=== PATIENT | female | born 1930 | race Hispanic/Latino ===

== ENCOUNTER 2018-01-26 14:09 | Inpatient (IN) | payer BC, MEDICARE ==
[2018-01-26 14:09] VITALS: BMI 21.9
--- NOTE | 2018-01-26 14:58 | C.PDOC ---
History Of Present Illness <Cleopatra Palacios - Last Filed: 01/26/18 18:43> <Ximena Martin - Last Filed: 01/26/18 19:29> 87 year old female, whose PMHx includes left femur ORIF, presents to the ED for evaluation after she tripped and fell in her home kitchen around 4 days ago. Patient states she fell onto her left hip. She has been experiencing pain with weight bearing and has limited full range of motion when walking, but is able to sit and lay down without pain. She denies head injury, LOC, extremity numbness/weakness. (Cleopatra Palacios) - HPI History Per: Patient History/Exam Limitations: no limitations Location Of Injury: Left: Hip Additional History Per: Patient <Cleopatra Palacios - Last Filed: 01/26/18 18:43> <Ximena Martin Nadeem - Last Filed: 01/26/18 19:29> - HPI Time Seen by Provider: 01/26/18 14:18 Chief Complaint (Nursing): Lower Extremity Problem/Injury Past Medical History Reviewed: Historical Data, Nursing Documentation, Vital Signs - Medical History PMH: Anemia, Anxiety, Colonic Polyps, Diabetes, Fractures (left hip fractured has a metal) Denies: Chronic Kidney Disease Surgical History: No Surg Hx Family History: States: Unknown Family Hx - Social History Hx Tobacco Use: No Hx Alcohol Use: No Hx Substance Use: No - Immunization History Hx Tetanus Toxoid Vaccination: No Hx Influenza Vaccination: Yes Hx Pneumococcal Vaccination: No <Cleopatra Palacios - Last Filed: 01/26/18 18:43> Vital Signs: Last Vital Signs Temp 98.3 F 01/26/18 16:55 Pulse 64 01/26/18 16:55 Resp 18 01/26/18 16:55 BP 133/71 01/26/18 16:55 Pulse Ox 94 L 01/26/18 18:44 - [facility] Procedures ENDOSC POLYPECTOMY OF LG INTEST (05/21/15) Review Of Systems Musculoskeletal: Positive for: Other (left hip pain ) Neurological: Negative for: Other (head injury, LOC ) <Cleopatra Palacios - Last Filed: 01/26/18 18:43> Physical Exam - Physical Exam Appears: Non-toxic, No Acute Distress Skin: Normal Color, Warm, Dry Head: Atraumatic, Normacephalic Eye(s): bilateral: Normal Inspection Oral Mucosa: Moist Neck: Supple Chest: Symmetrical, No Deformity, No Tenderness Cardiovascular: Rhythm Regular, No Murmur Respiratory: Normal Breath Sounds, No Rales, No Rhonchi, No Wheezing Extremity: No Normal ROM (limited, left hip ), Tenderness (diffuse, to left hip ), Capillary Refill (less than 2 seconds ), No Other (shortnening, malrotation, gross deformity ) Neurological/Psych: Oriented x3, Normal Speech, Normal Cognition, Normal Sensation <Cleopatra Palacios - Last Filed: 01/26/18 18:43> ED Course And Treatment O2 Sat by Pulse Oximetry: 94 - CT Scan/US L HIP Other Rad Studies (CT/US): Radiology Report Reviewed (Suspect subtle nondisplaced fracture of the left acetabular roof. No other acute abnormality.) Progress Note: CXR, CT Upper Extremity, Left Femur XR, left HIP, Pelvic XR ordered and reviewed. Patient was offered pain medication and states she does not want any at this time. <Cleopatra Palacios - Last Filed: 01/26/18 18:43> - Laboratory Results Result Diagrams: 01/26/18 19:07 01/26/18 19:07 ECG: Interpreted By Me ECG Rhythm: Sinus Rhythm, 1st Degree HB ECG Interpretation: No Acute Changes Interpretation Of ECG: old anteroseptal MO!st deg AV block.Otherwise neg <Ximena Martin - Last Filed: 01/26/18 19:29> Progress - Data Reviewed Data Reviewed: Diagnostic imaging <Cleopatra Palacios - Last Filed: 01/26/18 18:43> <Ximena Martin - Last Filed: 01/26/18 19:29> - Re-Evaluation Re-evaluation Note: 01/26/18 16:37 APPEARS COMFORTABLE NAD. WILL CT R/O FX 01/26/18 18:43 D/W [facility] MED MATCHER OPERATOR AWARE OF ER FINDINGS WILL ADMIT. CONSULT ORTHO MATCHER OPERATOR ( Cleopatra Palacios) Disposition Counseled Patient/Family Regarding: Studies Performed, Diagnosis - Disposition Disposition Time: 18:43 - POA Present On Arrival: Falls Or Trauma <Cleopatra Palacios - Last Filed: 01/26/18 18:43> <Ximena Martin - Last Filed: 01/26/18 19:29> - Disposition Disposition: HOSPITALIZED Condition: STABLE Forms: [facility] ([place]) - Clinical Impression Clinical Impression: Hip fracture Critical Care Time - Scribe Statement The provider has reviewed the documentation as recorded by the Scribe (Latonya Ely) <Cleopatra Palacios - Last Filed: 01/26/18 18:43> <Ximena Martin - Last Filed: 01/26/18 19:29> - Scribe Statement Provider Attestation: All medical record entries made by the Scribe were at my direction and personally dictated by me. I have reviewed the chart and agree that the record accurately reflects my personal performance of the history, physical exam, medical decision making, and the department course for this patient. I have also personally directed, reviewed, and agree with the discharge instructions and disposition. (Cleopatra Palacios) Decision To Admit - Pt Status Changed To: Hospital Disposition Of: Inpatient - Admit Certification Admit to Inpatient:: After my assessment, the patient will require hospitalization for at least two midnights. This is because of the severity of symptoms shown, intensity of services needed, and/or the medical risk in this patient being treated as an outpatient. - InPatient: Physician Admission Certification: I certify that this patient requires 2 or more midnights of care for the following reason:: SEE NOTE - . Bed Request Type: Regular Admitting Physician: Carlyle Law <Cleopatra Palacios - Last Filed: 01/26/18 18:43> <Ximena Martin - Last Filed: 01/26/18 19:29> - . Patient Diagnosis: Hip fracture
--- NOTE | 2018-01-26 16:29 | RAD ---
PROCEDURE: CHEST RADIOGRAPH, 1 VIEW HISTORY: Trauma COMPARISON: None available. FINDINGS: LUNGS: The lungs are hyperinflated and there is peribronchial thickening with chronic changes in both lungs. There is no airspace disease. PLEURA: There are no pleural effusions. There is a linear lucency along the left lateral chest wall however this appears artifactual related to in a soft tissue fold. CARDIOVASCULAR: Normal. OSSEOUS STRUCTURES: There is diffuse bone demineralization. There is an old fracture deformity in the left posterior 5th rib. VISUALIZED UPPER ABDOMEN: Normal. OTHER FINDINGS: None. IMPRESSION: Linear lucency along the left lateral chest wall appears artifactual related to a soft tissue fold however repeat PA a radiograph is recommended to exclude pneumothorax in this patient with history of trauma.
--- NOTE | 2018-01-26 16:37 | RAD ---
PROCEDURE: Left Femur Radiographs. HISTORY: TRAUMA COMPARISON: None. TECHNIQUE: AP and Lateral Radiographs of the left femur. FINDINGS: FEMUR: ORIF proximal left femur. No acute fracture. Hardware intact. SOFT TISSUES: Normal. OTHER FINDINGS: None. IMPRESSION: No acute fracture.
--- NOTE | 2018-01-26 16:38 | RAD ---
PROCEDURE: Radiographs of the pelvis. HISTORY: TRAUMA COMPARISON: None. FINDINGS: BONES: Pelvic Bones: Unremarkable. Hips: No acute fracture. Status post ORIF proximal left femur. JOINTS: Sacroiliac Joints: Osteoarthritis of right hip. Pubic Symphysis: Unremarkable. OTHER FINDINGS: None. IMPRESSION: No acute fracture. Osteoarthritis of right hip.
--- NOTE | 2018-01-26 18:38 | CT ---
PROCEDURE: CT left hip HISTORY: TRAUMA RO FX COMPARISON: Not available TECHNIQUE: 2.5 mm contiguous axial sections were acquired through the left hip. Sagittal and coronal images were reformatted from the axial scan. Total exam DLP: 324.21 mGy-cm This CT exam was performed using 1 or more of the following dose reduction techniques: Automated exposure control, adjustment of the mA and/or kV according to patient size, and/or use of iterative reconstruction technique. FINDINGS: There is suspected subtle nondisplaced fracture of the left acetabular roof best demonstrated on series 5, images 32 through 35. There is no other acute fracture identified. There is orthopedic hardware from prior ORIF of intertrochanteric fracture. The hardware is intact. There is osteoarthritis of the left hip with a subchondral cyst at the lateral margin of the acetabular roof. Incidentally noted calcified uterine fibroid. IMPRESSION: Suspect subtle nondisplaced fracture of the left acetabular roof. No other acute abnormality.
[2018-01-26] MEDS ORDERED: Sodium Chloride 0.9% 1,000 ML IV ONE (18:44)
[2018-01-26 19:13] LABS: BASO % 0.4 % (0.0-2.0); EOS # 0.1 K/uL (0.0-0.7); EOS % 2.7 % (0.0-4.0); HEMOGLOBIN 10.8 g/dL (11.0-16.0); LYMPH # 0.7 K/uL (1.0-4.3); LYMPH % 13.3 % (20.0-40.0); MEAN CELL VOLUME 80.8 fL (81.0-99.0); MEAN CORPUSCULAR HEMOGLOBIN 26.3 pg (27.0-31.0); MEAN CORPUSCULAR HGB CONC 32.5 g/dL (33.0-37.0); MEAN PLATELET VOLUME 9.5 fL (7.2-11.7); MONO # 0.9 K/uL (0.0-0.8); MONO % 17.8 % (0.0-10.0); NEUT # 3.5 K/uL (1.8-7.0); NEUT % 65.8 % (50.0-75.0); RBC 4.11 Mil/uL (3.80-5.20); RED CELL DISTRIBUTION WIDTH 14.8 % (11.5-14.5); WHITE BLOOD COUNT 5.3 K/uL (4.8-10.8)
[2018-01-26 19:22] LABS: PROTHROMBIN TIME 11.3 SECONDS (9.7-12.2)
[2018-01-26 19:23] LABS: ALB/GLOB RATIO 1.2 (1.0-2.1); ALBUMIN 3.7 g/dL (3.5-5.0); CALCIUM 8.4 mg/dl (8.6-10.4)
[2018-01-26 20:37] LABS: SQUAMOUS EPITHIAL 1 /hpf (0-5); URINE BACTERIA OCC (<OCC); URINE BILIRUBIN NEGATIVE (NEGATIVE); URINE BLOOD 3+ (NEGATIVE); URINE CLARITY Hazy (Clear); URINE COLOR Red (YELLOW); URINE GLUCOSE (UA) NORMAL (Normal); URINE HYALINE CAST 0-2 /lpf (0-2); URINE LEUKOCYTE ESTERASE 1+ Leu/uL (Negative); URINE PROTEIN 1+ mg/dL (NEGATIVE); URINE UROBILINOGEN NORMAL mg/dL (0.2-1.0)
[2018-01-26] MEDS ORDERED: Sodium Chloride 0.9% 1,000 ML ONE (21:34)
[2018-01-27] MEDS ORDERED: Enoxaparin 40 mg Syringe SC SCH (10:00)
[2018-01-27] MEDS: Multiple Vitamins Tab PO SCH (10:27)
[2018-01-27] MEDS: Enoxaparin 30 mg Syringe SC SCH (10:32)
--- NOTE | 2018-01-27 13:13 | CP.PCM.CON ---
History of Present Illness - History of Present Illness History of Present Illness: ID; 87yo female CC: painand restricted L hip ROM HPI: pt susatined a fall on L hip, and presetns with pain and restricted L hip ROM pt admitted after ER eval PT s/p prior HELLEN L hipfx, now tih fx acetabuleum(nondipslaced) Past Patient History - Infectious Disease Hx of Infectious Diseases: None - Past Medical History & Family History Past Medical History?: Yes - Past Social History Smoking Status: Never Smoked - CARDIAC Hx Cardiac Disorders: No - PULMONARY Hx Respiratory Disorders: No - NEUROLOGICAL Hx Neurological Disorder: No - HEENT Hx HEENT Problems: Yes Hx Cataracts: Yes (REMOVED BOTH EYES) Other/Comment: 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 VISION SLIGHTLY IMPAIRED NOW DUE TO SCAR TISSUE. WILL NEED SURGERY TO IMPROVE VISION. - RENAL Hx Chronic Kidney Disease: No - ENDOCRINE/METABOLIC Hx Endocrine Disorders: Yes Hx Diabetes Mellitus Type 2: Yes (DOES NOT TAKE MED. FOR) Other/Comment: DENIES DIABETES TODAY 01/26/18 - HEMATOLOGICAL/ONCOLOGICAL Hx Anemia: Yes - INTEGUMENTARY Hx Dermatological Problems: No - MUSCULOSKELETAL/RHEUMATOLOGICAL Hx Falls: Yes Hx Fractures: Yes (left hip fractured has a metal) - GASTROINTESTINAL Hx Gastrointestinal Disorders: No - GENITOURINARY/GYNECOLOGICAL Hx Genitourinary Disorders: Yes Other/Comment: 'OVERACTIVE BLADDER' - PSYCHIATRIC Hx Anxiety: Yes Hx Substance Use: No - SURGICAL HISTORY Hx Orthopedic Surgery: Yes (LT FEMUR SX) - ANESTHESIA Hx Anesthesia: Yes Hx Anesthesia Reactions: No Hx Malignant Hyperthermia: No Meds Allergies/Adverse Reactions: Allergies Allergy/AdvReac Type Severity Reaction Status Date / Time Penicillins Allergy Mild RASH Verified 01/26/18 14:34 turpentine oil Allergy Mild RASH Verified 01/26/18 14:34 - Medications Medications: Current Medications Enoxaparin Sodium (Lovenox) 30 mg SC DAILY [facility] Last Admin: 01/27/18 10:32 Dose: 30 mg Multivitamins (Hexavitamin) 1 tab PO DAILY [facility] Last Admin: 01/27/18 10:27 Dose: 1 tab Pneumococcal Polyvalent Vaccine (Pneumovax 23 Vaccine) 0.5 ml IM .ONCE ONE Stop: 01/29/18 10:01 Physical Exam - Additional Findings Additional findings: Systemic exam- groslly wnl pysiologically young appearing *87 yo ferm[place]- presents with pain and restricted L hip ROM Musculoskeltal stanc/gait- defrred ROM L hip restricted + heel percussion test N/V intact Results - Vital Signs Recent Vital Signs: Last Vital Signs Temp 97.4 F L 01/27/18 08:39 Pulse 88 01/27/18 08:39 Resp 20 01/27/18 08:39 BP 159/67 H 01/27/18 08:39 Pulse Ox 96 01/27/18 08:39 - Labs Result Diagrams: 01/26/18 19:07 01/26/18 19:07 Labs: Laboratory Results - last 24 hr 01/26/18 01/26/18 01/26/18 19:07 19:07 19:07 WBC 5.3 RBC 4.11 Hgb 10.8 L Hct 33.2 L MCV 80.8 L D MCH 26.3 L MCHC 32.5 L RDW 14.8 H Plt Count 117 L D MPV 9.5 Neut % (Auto) 65.8 Lymph % (Auto) 13.3 L Boyle % (Auto) 17.8 H Eos % (Auto) 2.7 Baso % (Auto) 0.4 Neut # (Auto) 3.5 Lymph # (Auto) 0.7 L Boyle # (Auto) 0.9 H Eos # (Auto) 0.1 Baso # (Auto) 0.0 PT 11.3 INR 1.0 APTT 31 Sodium 142 Potassium 3.9 Chloride 102 Carbon Dioxide 24 Anion Gap 19 BUN 34 H Creatinine 1.6 H Est GFR ( Amer) 37 Est GFR (Non-Af Amer) 30 Random Glucose 159 H Calcium 8.4 L Total Bilirubin 0.4 AST 12 L ALT 18 Alkaline Phosphatase 49 Total Protein 6.6 Albumin 3.7 Globulin 2.9 Albumin/Globulin Ratio 1.2 Urine Color Urine Clarity Urine pH Ur Specific [place] Urine Protein Urine Glucose (UA) Urine Ketones Urine Blood Urine Nitrate Urine Bilirubin Urine Urobilinogen Ur Leukocyte Esterase Urine WBC (Auto) Urine RBC (Auto) Ur Squamous Epith Cells Ur Transition Epith Cell Urine Bacteria Hyaline Casts Blood Type Antibody Screen 01/26/18 01/26/18 19:07 20:25 WBC RBC Hgb Hct MCV MCH MCHC RDW Plt Count MPV Neut % (Auto) Lymph % (Auto) Boyle % (Auto) Eos % (Auto) Baso % (Auto) Neut # (Auto) Lymph # (Auto) Boyle # (Auto) Eos # (Auto) Baso # (Auto) PT INR APTT Sodium Potassium Chloride Carbon Dioxide Anion Gap BUN Creatinine Est GFR ( Amer) Est GFR (Non-Af Amer) Random Glucose Calcium Total Bilirubin AST ALT Alkaline Phosphatase Total Protein Albumin Globulin Albumin/Globulin Ratio Urine Color Red Urine Clarity Hazy Urine pH 5.0 Ur Specific [place] 1.010 Urine Protein 1+ H Urine Glucose (UA) Normal Urine Ketones Negative Urine Blood 3+ H Urine Nitrate Negative Urine Bilirubin Negative Urine Urobilinogen Normal Ur Leukocyte Esterase 1+ H Urine WBC (Auto) 17 H Urine RBC (Auto) 217 H Ur Squamous Epith Cells 1 Ur Transition Epith Cell < 1 Urine Bacteria Occ H Hyaline Casts 0-2 Blood Type A NEGATIVE Antibody Screen Negative - Impressions Impression: Imaging CT - scan reveals prior ORIF L i ntertrochanteric hip fx Primary O/A L hip/CT reveals non displaced acetabular fx Assessment & Plan - Assessment and Plan (Free Text) Assessment: A- non displaced acetabular fx L P Toe touch weight bearing with walker no op intervention necessary at this point, thoughbt the pt does have a SEVERELY OSTEOARTHRITIC L HIP
[2018-01-28] MEDS: Multiple Vitamins Tab PO SCH (09:27)
[2018-01-28] MEDS: Enoxaparin 30 mg Syringe SC SCH (09:27)
--- NOTE | 2018-01-29 08:07 | CP.PCM.PN ---
Subjective - Date & Time of Evaluation Date of Evaluation: 01/29/18 Time of Evaluation: 08:05 - Subjective Subjective: Patient states pain is controlled unless she moves around, and then she has pain in her left hip. She has stairs to get into building, and then lives on second floor. Review of Systems - Review of Systems All systems: reviewed and no additional remarkable complaints except Review of Systems: no fever/chills - Cardiovascular Cardiovascular: UNREMARKABLE - Respiratory Respiratory: UNREMARKABLE - Gastrointestinal Gastrointestinal: UNREMARKABLE - Musculoskeletal Musculoskeletal: As Par HPI - Integumentary Integumentary: UNREMARKABLE - Neurological Neurological: UNREMARKABLE - Hematologic/Lymphatic Hematologic: UNREMARKABLE Objective - Vital Signs/Intake and Output Vital Signs (last 24 hours): Temp Pulse Resp BP Pulse Ox 97.6 F 58 L 20 125/68 96 01/28/18 23:25 01/28/18 23:25 01/28/18 23:25 01/28/18 23:25 01/28/18 23:25 Intake and Output: 01/29/18 01/29/18 06:59 18:59 Intake Total 120 Balance 120 - Medications Medications: Current Medications Docusate Sodium (Colace) 100 mg PO BID [facility] Last Admin: 01/28/18 17:57 Dose: 100 mg Enoxaparin Sodium (Lovenox) 30 mg SC DAILY [facility] Last Admin: 01/28/18 09:27 Dose: 30 mg Multivitamins (Hexavitamin) 1 tab PO DAILY [facility] Last Admin: 01/28/18 09:27 Dose: 1 tab Pneumococcal Polyvalent Vaccine (Pneumovax 23 Vaccine) 0.5 ml IM .ONCE ONE Stop: 01/29/18 10:01 - Labs Labs: 01/26/18 19:07 01/26/18 19:07 PT 11.3 SECONDS (9.7-12.2) 01/26/18 19:07 INR 1.0 01/26/18 19:07 APTT 31 SECONDS (21-34) 01/26/18 19:07 - Constitutional Appears: Well, No Acute Distress - Head Exam Head Exam: ATRAUMATIC - Neck Exam Neck Exam: Full ROM, Normal Inspection - Respiratory Exam Respiratory Exam: NORMAL BREATHING PATTERN - Cardiovascular Exam Additional comments: +DP/PT pulses - Extremities Exam Additional comments: sensation intact BLE Calves soft NT neg homans - Neurological Exam Neurological Exam: Alert, Awake, Oriented x3 Neuro motor strength exam: Left Lower Extremity: 5, Right Lower Extremity: 5 - Psychiatric Exam Psychiatric exam: Normal Affect, Normal Mood - Skin Skin Exam: Dry, Intact, Normal Color, Warm Assessment and Plan (1) Closed left acetabular fracture Assessment & Plan: non operative treatment of fracture TTWB LLE, advised patient WB could displace fracture PT/OT VTE proph d/c planning SCD no orthopedic intervention indicated at this time d/w Dr. Rendon, agrees with above Status: Acute (2) Osteoarthritis of right hip Status: Chronic
[2018-01-29] MEDS ORDERED: Pneumococcal 23-Valent Vaccine IM ONE (10:00)
[2018-01-29] MEDS: Multiple Vitamins Tab PO SCH (10:30)
[2018-01-29] MEDS: Enoxaparin 30 mg Syringe SC SCH (10:30)
--- NOTE | 2018-01-29 11:47 | CP.PCM.PN ---
Subjective - Date & Time of Evaluation Date of Evaluation: 01/29/18 Time of Evaluation: 10:25 - Subjective Subjective: PGY-[address] Law Patient see and examined at bedside with family member present. No acute events reported overnight. Patient reports with mild pain at the left hip. Patient denies fever, chills, headache, shortness of breath, chest pain, nausea, vomiting, or diarrhea. Objective - Vital Signs/Intake and Output Vital Signs (last 24 hours): Temp Pulse Resp BP Pulse Ox 97.5 F L 58 L 20 149/83 95 01/29/18 08:00 01/29/18 08:00 01/29/18 08:00 01/29/18 08:00 01/29/18 08:00 Intake and Output: 01/29/18 01/29/18 06:59 18:59 Intake Total 120 Balance 120 - Medications Medications: Current Medications Docusate Sodium (Colace) 100 mg PO BID [facility] Last Admin: 01/29/18 10:30 Dose: 100 mg Enoxaparin Sodium (Lovenox) 30 mg SC DAILY [facility] Last Admin: 01/29/18 10:30 Dose: 30 mg Multivitamins (Hexavitamin) 1 tab PO DAILY [facility] Last Admin: 01/29/18 10:30 Dose: 1 tab - Labs Labs: 01/26/18 19:07 01/26/18 19:07 PT 11.3 SECONDS (9.7-12.2) 01/26/18 19:07 INR 1.0 01/26/18 19:07 APTT 31 SECONDS (21-34) 01/26/18 19:07 - Constitutional Appears: Non-toxic, No Acute Distress, Younger Than Stated Age - Head Exam Head Exam: ATRAUMATIC, NORMOCEPHALIC - Eye Exam Eye Exam: EOMI, Normal appearance - ENT Exam ENT Exam: Mucous Membranes Moist - Neck Exam Neck Exam: Normal Inspection - Respiratory Exam Respiratory Exam: Clear to Ausculation Bilateral, NORMAL BREATHING PATTERN. absent: Respiratory Distress - Cardiovascular Exam Cardiovascular Exam: REGULAR RHYTHM, +S1, +S2. absent: Murmur - GI/Abdominal Exam GI & Abdominal Exam: Soft, Normal Bowel Sounds. absent: Tenderness - Extremities Exam Extremities Exam: absent: Pedal Edema Additional comments: Limited hip range of motion due to pain - Neurological Exam Neurological Exam: Alert, Awake, Oriented x3. absent: Motor Sensory Deficit - Psychiatric Exam Psychiatric exam: Agitated - Skin Skin Exam: Normal Color, Warm Assessment and Plan - Assessment and Plan (Free Text) Assessment: Left acetabular fracture -CT LE shows subtle nondisplaced fracture of the left acetabular roof. No other acute abnormality. -Femur X-ray shows no acute fracture -Orthopedic consult, Dr. Rendon help appreciated -No surgical intervention necessary at this point -Toe touch weight bearing with walker Prophylactic measures -Lovenox -Pepcid -PT/OT Dispo: Patient and family member would to go [facility] for rehab Discussed with attending Dr. Law
[2018-01-29] MEDS ORDERED: Influenza Vaccine 60 mcg/0.5 mL SYR (4YR UP) IM ONE (12:00)
--- NOTE | 2018-01-29 14:07 | HP ---
HISTORY OF PRESENT ILLNESS: This is an 87-year-old female who came to the hospital complaining for a fracture. The patient came to ER, advised admission. The patient has no past medical history. The patient is on multivitamin. The patient is a nonsmoker, nondrinker. PHYSICAL EXAMINATION: GENERAL: The patient is awake, alert, and oriented. VITAL SIGNS: Temperature 98, pulse 90. HEENT: Within normal limits. NECK: Supple. CHEST: Symmetrical. HEART: Regular. ABDOMEN: Soft. Distended a little bit. EXTREMITIES: No edema. IMPRESSION: Fall, status post fracture. Patient bedrest, pain medication, PT eval, also orthopedic consultation. Carlyle Law MD
--- NOTE | 2018-01-30 06:39 | PN ---
DATE: 01/28/2018 Patient is getting supportive care, pain medication. Carlyle Law MD [facility] # [id number]
[2018-01-30 08:04] LABS: BASO % 0.5 % (0.0-2.0); EOS # 0.1 K/uL (0.0-0.7); HEMOGLOBIN 12.1 g/dL (11.0-16.0); LYMPH # 0.7 K/uL (1.0-4.3); LYMPH % 11.9 % (20.0-40.0); MEAN CELL VOLUME 79.7 fL (81.0-99.0); MEAN CORPUSCULAR HEMOGLOBIN 26.6 pg (27.0-31.0); MEAN CORPUSCULAR HGB CONC 33.4 g/dL (33.0-37.0); MEAN PLATELET VOLUME 8.9 fL (7.2-11.7); MONO # 0.8 K/uL (0.0-0.8); MONO % 13.4 % (0.0-10.0); NEUT # 4.5 K/uL (1.8-7.0); NEUT % 72.2 % (50.0-75.0); NRBC % 0.1 % (0.0-2.0); RBC 4.55 Mil/uL (3.80-5.20); RED CELL DISTRIBUTION WIDTH 14.5 % (11.5-14.5); WHITE BLOOD COUNT 6.2 K/uL (4.8-10.8)
[2018-01-30 08:07] VITALS: O2SAT 95
--- NOTE | 2018-01-30 09:48 | CP.PCM.PN ---
Subjective - Date & Time of Evaluation Date of Evaluation: 01/30/18 Time of Evaluation: 09:48 - Subjective Subjective: Medicine progress note for Dr. Law. Patient seen ambulating in hallway with physical therapy. Patient states she is doing well and is feeling okay. She denies all complaints at this time. Objective - Vital Signs/Intake and Output Vital Signs (last 24 hours): Temp Pulse Resp BP Pulse Ox 97.7 F 60 20 132/71 95 01/30/18 07:40 01/30/18 07:40 01/30/18 07:40 01/30/18 07:40 01/30/18 07:40 Intake and Output: 01/30/18 01/30/18 06:59 18:59 Intake Total 640 Output Total 650 Balance -10 - Medications Medications: Current Medications Docusate Sodium (Colace) 100 mg PO BID [facility] Last Admin: 01/29/18 17:35 Dose: 100 mg Enoxaparin Sodium (Lovenox) 30 mg SC DAILY [facility] Last Admin: 01/29/18 10:30 Dose: 30 mg Famotidine (Pepcid) 20 mg PO DAILY [facility] Multivitamins (Hexavitamin) 1 tab PO DAILY [facility] Last Admin: 01/29/18 10:30 Dose: 1 tab - Labs Labs: 01/30/18 07:41 01/26/18 19:07 PT 11.3 SECONDS (9.7-12.2) 01/26/18 19:07 INR 1.0 01/26/18 19:07 APTT 31 SECONDS (21-34) 01/26/18 19:07 - Constitutional Appears: Non-toxic, No Acute Distress - Head Exam Head Exam: ATRAUMATIC, NORMOCEPHALIC - Eye Exam Eye Exam: EOMI - ENT Exam ENT Exam: Mucous Membranes Moist - Respiratory Exam Respiratory Exam: NORMAL BREATHING PATTERN - Cardiovascular Exam Cardiovascular Exam: +S1, +S2 - GI/Abdominal Exam GI & Abdominal Exam: Soft, Normal Bowel Sounds - Extremities Exam Additional comments: left hip ROM limited due to pain, patient able to ambulate with walker - Neurological Exam Neurological Exam: Alert, Awake - Psychiatric Exam Psychiatric exam: Normal Affect - Skin Skin Exam: Warm Assessment and Plan - Assessment and Plan (Free Text) Assessment: Left acetabular fracture -CT LE shows subtle nondisplaced fracture of the left acetabular roof. No other acute abnormality. -Femur X-ray shows no acute fracture -Orthopedic consult, Dr. Rendon help appreciated -No surgical intervention necessary at this point -Toe touch weight bearing with walker Prophylactic measures -Lovenox -Pepcid -PT/OT All management as per Dr. Law Patient is stable for discharge to rehab facility per Dr. Law. Patient is to maintain toe touch weight bearing only to left lower extremity at this time as per orthopedics team. Patient is to follow up with Dr. Rendon as outpatient.
[2018-01-30] MEDS: Enoxaparin 30 mg Syringe SC SCH (10:35)
[2018-01-30] MEDS: Multiple Vitamins Tab PO SCH (10:36)
--- NOTE | 2018-01-30 13:00 | CARD ---
APPROVED REPORT EKG Measurement Heart [id number] <Conclusion> Sinus rhythm with 1st degree AV block Left axis deviation Pulmonary disease pattern Septal infarct, age undetermined Abnormal ECG
[2018-01-30 16:22] VITALS: BP 110/62; PULSE 63; RESP 18; TEMP 97.4
== END 2018-01-30 17:25 | DRG 536 ==
LOC: C.ER 14:09 → C.9E 18:45 → C.6T 21:38
PROVIDERS: ADMIT Internal Medicine Pulmonary Disease; ATTEND Internal Medicine Pulmonary Disease
DX: S32.402A Unspecified fracture of left acetabulum, initial encounter for closed fracture (principal); E11.9 Type 2 diabetes mellitus without complications; M16.12 Unilateral primary osteoarthritis, left hip; W01.0XXA Fall on same level from slipping, tripping and stumbling without subsequent striking against object, initial encounter; N32.81 Overactive bladder; Y92.010 Kitchen of single-family (private) house as the place of occurrence of the external cause; Z86.010 Personal history of colon polyps